=== PATIENT | male | born 1995 | race Caucasian/White ===

== ENCOUNTER 2018-02-24 21:11 | Emergency (ER) | payer BC, OTHER ==
--- NOTE | 2018-02-24 23:16 | ED ---
HPI Chest Pain - HPI Summary HPI Summary: Patient complains of left lower rib pain after falling while playing baseball today. Denies any other injuries or symptoms. - History of Current Complaint Chief Complaint: EDChestWallPain Time Seen by Provider: 02/24/18 21:49 Hx Obtained From: Patient Onset/Duration: Started Hours Ago Timing: Constant Initial Severity: Mild Current Severity: Mild Pain Intensity: 4 Pain Scale Used: 0-10 Numeric Chest Pain Radiates: No Aggravating Factor(s): Movement Alleviating Factor(s): Position Associated Signs and Symptoms: Positive: Negative - Allergy/Home Medications Allergies/Adverse Reactions: Allergies Allergy/AdvReac Type Severity Reaction Status Date / Time cetirizine [From [facility]] Allergy Unknown Verified 02/24/18 21:19 Reaction Details PMH/Surg Hx/FS Hx/Imm Hx Endocrine/Hematology History: Denies: Hx Diabetes, Hx Thyroid Disease Cardiovascular History: Denies: Hx Hypercholesterolemia, Hx Hypertension, Hx Pacemaker/ICD, Hx Peripheral Vascular Disease Musculoskeletal History: Denies: Hx Arthritis, Hx Rheumatoid Arthritis, Hx Osteoporosis Sensory History: Denies: Hx Cataracts, Hx Contacts or Glasses, Hx Glaucoma, Hx Hearing Aid Opthamlomology History: Denies: Hx Cataracts, Hx Contacts or Glasses, Hx Glaucoma Neurological History: Denies: Hx Headaches, Hx Seizures, Hx Transient Ischemic Attacks (TIA) Psychiatric History: Denies: Hx Anxiety, Hx Depression, Hx Panic Disorder - Surgical History Surgery Procedure, Year, and Place: VASCULAR SURGERY [place] - REPORTS UNDER OTHER FACILITY OP - (X4 COOK COILS AND AMPLATZER VASCULAR PLUG) ;[facility] X2. [place] reports under other facility op. [facility] Infectious Disease History: No Infectious Disease History: Denies: History Other Infectious Disease, Traveled Outside the [place] in Last 30 Days - Social History Alcohol Use: None Substance Use Type: Reports: None Smoking Status (MU): Never Smoked Tobacco Review of Systems Constitutional: Negative Eyes: Negative ENT: Negative Cardiovascular: Negative Respiratory: Negative Gastrointestinal: Negative Genitourinary: Negative Musculoskeletal: Other Skin: Negative Neurological: Negative Psychological: Normal All Other Systems Reviewed And Are Negative: Yes Physical Exam - Summary Physical Exam Summary: No ecchymosis, deformity, swelling, erythema noted to left side ribs. Lungs to auscultation bilaterally. Triage Information Reviewed: Yes Vital Signs On Initial Exam: Initial Vitals Temp Pulse Resp BP Pulse Ox 98.6 F 122 16 119/84 96 02/24/18 21:12 02/24/18 21:12 02/24/18 21:12 02/24/18 21:12 02/24/18 21:12 Vital Signs Reviewed: Yes Appearance: Positive: Well-Appearing Skin: Positive: Warm Head/Face: Positive: Normal Head/Face Inspection Eyes: Positive: Normal Neck: Positive: Supple Respiratory/Lung Sounds: Positive: Clear to Auscultation Cardiovascular: Positive: Normal Abdomen Description: Positive: Nontender Musculoskeletal: Positive: Normal Neurological: Positive: Normal Psychiatric: Positive: Normal AVPU Assessment: Alert - John Coma Scale Best Eye Response: 4 - Spontaneous Best Motor Response: 6 - Obeys Commands Best Verbal Response: 5 - Oriented Coma Scale Total: 15 Diagnostics - Vital Signs Vital Signs Temp Pulse Resp BP Pulse Ox 02/24/18 21:12 98.6 F 122 16 119/84 96 - Laboratory Lab Statement: Any lab studies that have been ordered have been reviewed, and results considered in the medical decision making process. - Radiology ribs Xray Interpretation: No Acute Changes Radiology Interpretation Completed By: ED Physician Chest Pain Course/Dx - Course Course Of Treatment: Patient complains of left lower rib pain after falling while playing baseball today. Denies any other injuries or symptoms. No ecchymosis, deformity, swelling, erythema noted to left side ribs. Lungs to auscultation bilaterally. Vital signs within normal limits. Chest x-ray negative for acute process. Recommend ibuprofen for pain. - Diagnoses Provider Diagnoses: Rib pain on left side Discharge - Sign-Out/Discharge Documenting (check all that apply): Patient Departure - Discharge Plan Condition: Stable Disposition: HOME Patient Education Materials: Chest Wall Pain (ED) Referrals: Abeba Frederick NP [Primary Care Provider] - Additional Instructions: Ibuprofen for pain. Return to the ED for any new or worsening symptoms - Billing Disposition and Condition Condition: STABLE Disposition: Home
[2018-02-24 23:42] VITALS: BP 103/67
--- NOTE | 2018-02-25 07:43 | RAD ---
HISTORY: left rib pain after fall COMPARISONS: None VIEWS: 4, Frontal and oblique views of the left hemithorax. FINDINGS: There is no displaced rib fracture or pneumothorax. The visualized lungs are clear. Embolization coils are noted within the left hemiabdomen. IMPRESSION: NO DISPLACED RIB FRACTURE OR LEFT PNEUMOTHORAX. R0
== END 2018-02-24 23:41 | disposition home or self-care (01) ==
LOC: ED 21:11
DX: R07.81 Pleurodynia (principal)
CPT/HCPCS: 99282

== ENCOUNTER 2018-03-24 08:55 | Emergency (ER) | payer BC ==
[2018-03-24 09:11] VITALS: BP 118/74
--- NOTE | 2018-03-24 10:15 | UC ---
Respiratory Complaint HPI - HPI Summary HPI Summary: 22 y/o male presents to the urgent care c/o nasal congestion w/ yellowish nasal discharge, +PND yellowish for the past week. He thought it was the common cold, but for the past 2 days he has sore throat w/ enlarged tonsils. Pain w/ swallowing is 4/10 associated w/ subjective fever on and off at home. Pt denies SOB, wheezing, abdominal pain, N/V/D. Pt is UTD w/ vaccines for his age. - History of Current Complaint Chief Complaint: UCGeneralIllness Stated Complaint: COUGH,CONGESTED Time Seen by Provider: 03/24/18 10:06 Hx Obtained From: Patient Onset/Duration: Gradual Onset, Lasting Weeks - 1 week, Still Present, Worse Since - 2 days ago Timing: Constant Severity Initially: Mild Severity Currently: Moderate Pain Intensity: 4 Pain Scale Used: 0-10 Numeric Character: Cough: Nonproductive Aggravating Factors: Recumbent Position Alleviating Factors: Nothing Associated Signs And Symptoms: Positive: URI, Nasal Congestion, Sinus Discomfort. Negative: Fever, Chills, Wheezing - Risk Factors Pulmonary Embolism Risk Factors: Negative Cardiac Risk Factors: Negative Pseudomonas Risk Factors: Negative Tuberculosis Risk Factors: Negative - Allergies/Home Medications Allergies/Adverse Reactions: Allergies Allergy/AdvReac Type Severity Reaction Status Date / [facility] Allergy Unknown Verified 03/24/18 09:03 Reaction Details Home Medications: Home Medications Phenylephrine HCl/Acetaminophn [Daytime Sinus Softgel] 1 tab PO Q6HR PRN [History Confirmed 03/24/18] PMH/Surg Hx/FS Hx/Imm Hx Previously Healthy: Yes - Pt denies PMHX - Surgical History Surgical History: Yes Surgery Procedure, Year, and Place: VASCULAR SURGERY [place] - REPORTS UNDER OTHER FACILITY OP - (X4 COOK COILS AND AMPLATZER VASCULAR PLUG) ;[facility] X2. [place] reports under other facility op. [facility] - Family History Known Family History: Positive: Cardiac Disease, Hypertension, Diabetes Family History: dyslipidemia - Social History Occupation: Student Lives: With Family Alcohol Use: Occasionally Substance Use Type: None Smoking Status (MU): Never Smoked Tobacco - Immunization History Vaccination Up to Date: Yes Review of Systems Constitutional: Negative Skin: Negative Eyes: Negative ENT: Sore Throat, Nasal Discharge, Sinus Congestion, Sinus Pain/Tenderness Respiratory: Cough - dry Cardiovascular: Negative Gastrointestinal: Negative Genitourinary: Negative Motor: Negative Neurovascular: Negative Musculoskeletal: Negative Neurological: Headache - mild Psychological: Negative Is Patient Immunocompromised?: No All Other Systems Reviewed And Are Negative: Yes Physical Exam - Summary Physical Exam Summary: Vitals: reviewed General: Well developed, well-nourished male patient with NAD. Head and face: Normocephalic and atraumatic, Positive tenderness over the frontal and maxillary sinuses.. Eyes: PERRLA, EOMI x 2. Normal conjunctiva. No eye discharge. ENT: Ears and TM with normal limits. Nose: edematous and erythematous nasal mucosa with with yellowish discharge and erythematous mucosa. Pharynx with erythema, B/L tonsil enlargement w/ exudate. Uvula is in the midline Neck: Supple, no JVD, no carotid bruits and no lymphadenopathy. Lungs: clear, no rales, no rhonchi, no wheezes. CVS: RRR, S1 and S2 present no murmurs or gallops appreciated. Abdomen: soft nontender with positive bowel sounds. Extremities: no edema noted. Neuro: WNL. Skin: warm and dry Triage Information Reviewed: Yes Vital Signs: Initial Vital Signs Temp 98.9 F 03/24/18 09:04 Pulse 88 03/24/18 09:04 Resp 20 03/24/18 09:04 BP 118/74 03/24/18 09:04 Pulse Ox 99 03/24/18 09:04 UC Diagnostic Evaluation - Laboratory O2 Sat by Pulse Oximetry: 99 Respiratory Course/Dx - Course Course Of Treatment: 22 y/o male presents to the urgent care c/o nasal congestion w/ yellowish nasal discharge, +PND yellowish for the past week. He thought it was the common cold, but for the past 2 days he has sore throat w/ enlarged tonsils. Pain w/ swallowing is 4/10 associated w/ subjective fever on and off at home. Pt denies SOB, wheezing, abdominal pain, N/V/D. Pt is UTD w/ vaccines for his age.Hx obtained. Pt w/ pahryngitis and acute bacterial sinusitis on examination. Rapid strep ordered:negative.Pt with 1 week of symptoms getting worse. Pt Rx Augmentin PO and flonase nasal spray. Discharge instructions explained to Pt. Advised to Return to the clinic or PCP if symptoms do not improve.Pt understood and agreed with plan of care. - Differential Dx/Diagnosis Differential Diagnosis/HQI/PQRI: Bronchitis, Influenza, Sinusitis, Other - strep pharyngitis Provider Diagnoses: 1- Acute bacterial sinusitis. 2- Phryngitis Discharge - Sign-Out/Discharge Documenting (check all that apply): Patient Departure - D/C home All imaging exams completed and their final reports reviewed: No Studies - Discharge Plan Condition: Stable Disposition: HOME Prescriptions: Amoxicillin/Clavulanate TAB* [Augmentin TAB 875*] 875 mg PO BID #20 tab Fluticasone NASAL SPRAY 50MCG* [Flonase NASAL SPRAY 50MCG*] 2 spray BOTH NARES DAILY #1 btl Patient Education Materials: Sinusitis (ED) Referrals: Elias Turner MD [Primary Care Provider] - 3 Days Additional Instructions: 1- Please increase fluid intake and rest. take full course of antibiotic to avoid resistance 2-Use Flonase as directed to help drain fluid. Also buy saline drops to clear sinuses 3-Take Sudafed PO to alleviates sinus congestion 4-Return to the clinic or PCP in 3 days if symptoms do not improve for further management and treatment - Billing Disposition and Condition Condition: STABLE Disposition: Home
--- NOTE | 2018-03-25 07:12 | UC ---
Discharge - Sign-Out/Discharge Documenting (check all that apply): Post-Discharge Follow Up All imaging exams completed and their final reports reviewed: No Studies - Discharge Plan Condition: Stable Disposition: HOME Prescriptions: Amoxicillin/Clavulanate TAB* [Augmentin TAB 875*] 875 mg PO BID #20 tab Fluticasone NASAL SPRAY 50MCG* [Flonase NASAL SPRAY 50MCG*] 2 spray BOTH NARES DAILY #1 btl Patient Education Materials: Sinusitis (ED) Referrals: Elias Turner MD [Primary Care Provider] - 3 Days Additional Instructions: 1- Please increase fluid intake and rest. take full course of antibiotic to avoid resistance 2-Use Flonase as directed to help drain fluid. Also buy saline drops to clear sinuses 3-Take Sudafed PO to alleviates sinus congestion 4-Return to the clinic or PCP in 3 days if symptoms do not improve for further management and treatment - Billing Disposition and Condition Condition: STABLE Disposition: Home
== END 2018-03-24 10:51 | disposition home or self-care (01) ==
LOC: UCEAST 08:55
DX: J01.80 Other acute sinusitis (principal); J02.9 Acute pharyngitis, unspecified; Z88.8 Allergy status to other drugs, medicaments and biological substances; B96.89 Other specified bacterial agents as the cause of diseases classified elsewhere
CPT/HCPCS: 87651; 99212; G0463

== ENCOUNTER 2018-10-14 11:10 | Emergency (ER) | payer BC ==
[2018-10-14 11:42] VITALS: BP 122/69
--- NOTE | 2018-10-14 11:51 | UC ---
General HPI - HPI Summary HPI Summary: per triage, states dislocated right shoulder on 10/10 and put back in himself. c/o right shoulder pain, worse when lifting arm above head. pain is in the anterior shoulder plus pt notes it pops and feels unstable. this is his 4th dislocation. this occurred while reaching out in a fall during basketball. self txing with kinesio tape. - History of Current Complaint Chief Complaint: UCUpperExtremity Stated Complaint: RIGHT SHOULDER INJURY Time Seen by Provider: 10/14/18 11:39 Hx Obtained From: Patient Pain Intensity: 3 Aggravating: movement Alleviating: rest Associated Signs & Symptoms: Negative: Edema - Allergy/Home Medications Allergies/Adverse Reactions: Allergies Allergy/AdvReac Type Severity Reaction Status Date / Time cetirizine [From [facility]] Allergy Unknown Verified 10/14/18 11:40 Reaction Details Home Medications: Home Medications NK [No Home Medications Reported] 10/14/18 [History Confirmed 10/14/18] PMH/Surg Hx/FS Hx/Imm Hx Previously Healthy: Yes - Surgical History Surgical History: Yes Surgery Procedure, Year, and Place: VASCULAR SURGERY [place] - REPORTS UNDER OTHER FACILITY OP - (X4 COOK COILS AND AMPLATZER VASCULAR PLUG) ;[facility] X2. [place] reports under other facility op. [facility] - Family History Known Family History: Positive: Cardiac Disease, Hypertension, Diabetes Family History: dyslipidemia - Social History Occupation: Student Alcohol Use: Weekly Substance Use Type: None Smoking Status (MU): Never Smoked Tobacco - Immunization History Vaccination Up to Date: Yes Review of Systems All Other Systems Reviewed And Are Negative: Yes Musculoskeletal: Positive: Arthralgia - R shoulder Neurological: Negative: Weakness, Paresthesia, Numbness Physical Exam Triage Information Reviewed: Yes Appearance: Well-Appearing Vital Signs: Initial Vital Signs Temp 97.4 F 10/14/18 11:39 Pulse 62 10/14/18 11:39 Resp 15 10/14/18 11:39 BP 122/69 10/14/18 11:39 Pulse Ox 99 10/14/18 11:39 Vital Signs Reviewed: Yes Eyes: Positive: Conjunctiva Clear ENT: Positive: Normal ENT inspection Neck: Positive: Supple, Nontender, No Lymphadenopathy Respiratory: Positive: Lungs clear Cardiovascular: Positive: RRR Abdomen Description: Positive: Nontender Musculoskeletal: Positive: Other: - R shoulder=no gross deformity or swelling. Tender over anterior shoulder. rom limited to avoid redislocation but passive limited rom is intact. rest of arm unremarkable and hand has full s/v/m function. No numness over deltoid. Neurological: Positive: Alert Psychological: Positive: Age Appropriate Behavior Skin Exam: Normal Diagnostics - Radiology No standard instances Radiology Interpretation Completed By: Radiologist - R shoulder=nad Course/Dx - Differential Dx - Multi-Symptom Differential Diagnoses: Other - no fx / dislocation on xray. recurrent dislocation by hx. will sling and refer to orthopedics - Diagnoses Provider Diagnosis: Shoulder pain, right Discharge - Sign-Out/Discharge Documenting (check all that apply): Patient Departure All imaging exams completed and their final reports reviewed: Yes - Discharge Plan Condition: Stable Disposition: HOME Patient Education Materials: Shoulder Dislocation (ED) Referrals: David Erazo MD [Medical Doctor] - As Soon As Possible Additional Instructions: SLING AND NO SPORTS UNTIL CLEARED. - Billing Disposition and Condition Condition: STABLE Disposition: Home
[2018-10-14] MEDS ORDERED: Ibuprofen ADULT LIQ* 600 MG/30 ML UDC PO ONE (12:07)
== END 2018-10-14 12:55 | disposition home or self-care (01) ==
LOC: UCCORT 11:10
DX: M25.511 Pain in right shoulder (principal); Z88.8 Allergy status to other drugs, medicaments and biological substances
CPT/HCPCS: 99213; A9270-GY; G0463